=== PATIENT | male | born 2000 | race African-American/Black ===

== ENCOUNTER 2023-01-05 03:03 | Emergency (ER) | payer OTHER ==
[2023-01-05] MEDS ORDERED: Ibuprofen 800 MG TAB ONE (03:48)
== END 2023-01-05 04:45 | disposition home or self-care (01) ==
LOC: MADERS 03:03
DX: S13.4XXA Sprain of ligaments of cervical spine, initial encounter (principal); V48.1XXA Car passenger injured in noncollision transport accident in nontraffic accident, initial encounter; Y92.89 Other specified places as the place of occurrence of the external cause
CPT/HCPCS: 99284